=== PATIENT | female | born 1985 | race Two or more races ===

== ENCOUNTER 2021-08-07 08:28 | Outpatient (CLI) | payer OTHER ==
[2021-08-07 10:46] VITALS: BP 128/86
--- NOTE | 2021-08-07 10:46 | SLEEP CARE CONSULTATION ---
Information from patient questionnaire entered by Lanny Day MA. I have reviewed and concur with the information entered by Lanny Day MA. This document represents the service I personally performed and the decisions made by , Altagracia Ferrer ARNP. History of Present Illness Service Date and Time: 08/07/2021 0828 Reason for Visit: New patient, Previously diagnosed sleep apnea, sleep apnea on CPAP therapy, Other (update supplies) Date of Onset: 5 years or more Usual bedtime: 1100 am Time it takes to fall asleep: 3 hours Snores at night: Yes Observed to quit breathing while asleep: No Sleeps alone due to snoring: Yes Number of times waking at night: 2 -3 times Reasons for waking at night: reports: Snoring, Bathroom Toss, Turn, or Twitch while sleeping: Yes Recalls having dreams: Yes Usually gets out of bed at: 0600 0700 Feels refreshed in the morning: No Morning headache: No Sleepy or fatigued during the day: No Ever fallen asleep while driving: No Takes day naps: Yes Dreams during day naps: Yes Prior sleep studies: Yes Year and Where: 01-14-2018 in [place] Type of Sleep Study: Polysomnography Additional HPI information: MARIA ISABEL DELGADO was previously diagnosed to have unknown, AHI unknown, sleep apnea- hypopnea syndrome and comes in today to establish care for CPAP therapy. - Parasomnia Symptoms Ever been unable to move upon waking from sleep: Yes Walks in sleep: No Talks in sleep: Yes Ever acted out dreams in sleep: Yes Ever felt weak in the knees when startled or emotional: No Bothered by creepy, crawly, restless sensations in legs: No Problems with memory or concentration: Yes CPAP Compliance Data - Data Reviewed with Patient Average duration of nightly device use: 5 hours 34 minutes Compliance rate %: 10 Current pressure setting (cmH2O): 8-15 Average residual AHI: 0.7 Central apnea: 0.0 Obstructive apnea: 0.6 Compliance data discussion: Patient has been on CPAP since 2018. She has not been able to get supplies for about 2 years she has not been able to get supplies. Her DME, [employer], stopped sending supplies and she has not been able to get ahold of them. She is using a nasal , over the nose, type mask. She is in need of supplies. Her mask is not working well because she needs a new mask. Subjective Patient concerns: denies: aerophagia, mask discomfort, air blowing in eyes, mask leak noise, condensation in mask/hose, nasal congestion, dry mouth, nose, throat, epistaxis, other Observed to snore while using device: No Current pressure setting perceived as: comfortable On therapy, patient: reports: sleeping better, awakening more refreshed, being more awake and alert during the day, more rested overall. denies: drowsiness while driving Initial [place] Sleepiness Scale score: 11 (2020) Past Medical History Past Medical History: reports: Other (insomnia; tonsillectomy; nose surgery to open up once side of nose) Social History The patient's occupation is a NONE. Patient is and lives in [place]. Have you smoked in the past 12 months: Yes Years of smokin Alcohol use: Yes Alcohol amount and frequency: 3 x weekends Caffeine use: Yes Caffeine amount and frequency: 2 sodas a week Family History Family history of sleep disordered breathing: No Family Hx Sleep Apnea: Father: Snoring (2 sisters), Sibling: Snoring Allergies and Home Medications Drug allergies reviewed: Yes (NKDA) Home medication list reviewed: Yes Allergy and home medication list: sleeping aide (she does not remember name) vitamins Review of Systems Weight gain over past 5 years: 50 Cardiovascular: denies: high blood pressure Gastrointestinal: denies: heartburn Neurological: denies: headaches Psychiatric: denies: anxiety, depression Ear/Nose/Throat: reports: tonsillectomy. denies: wisdom teeth removed Endocrine: denies: thyroid disease Immunologic: denies: allergies to food or environment Physical Exam Vital signs obtained and entered by: Greg DAY CMA AAMA Blood Pressure: 128/86 (LEFT) Cuff size: wrist Heart Rate: 91 O2 Saturation: 93 (CLOTH MASK) Height: 5 ft 1 in Weight: 171 lb Body Mass Index: 32.3 BMI Classification: Obese Heart: regular rate and rhythm Lungs: clear bilaterally Impression and Plan 1. Obstructive Sleep Apnea-Hypopnea Syndrome, unknown, with poor treatment compliance and excellent apnea control. On CPAP therapy, the patient has better sleep quality and is more rested overall. Patient has been on CPAP for about 3 years. Patient states about 2 years ago she stopped getting supplies from her DME company. She try to contact them but was never able to get a hold of anyone and she thinks that they may no longer be in business. She uses nasal over the nose style of mask and when she has will slip off of her face within 20 minutes of her putting on her mask. She needs supplies. We need a copy of her sleep study. She has requested this and states it will take about 3 weeks for her to get back copy and then she will bring it into the office. Once I have a copy of her sleep study I will write for a transfer of DME for her supplies and to update her supplies. I will then follow-up with her in about a month after this to recheck her compliance. Patient's apnea severity and rationale for treatment to reduce apnea, improve sleep quality and reduce cardiovascular and cerebrovascular events was reviewed. Patient was encouraged to lose weight for their overall health and to reduce apneas. * Continue auto CPAP pressure at 8-15 cmH2O * Transfer DME * Update supplies * Notify me if snoring with mask or feeling that the pressure is too much or too little * Attempt to lose weight * Call this office if any problems using CPAP * Return for follow up in 1-2 months, or sooner if concerns arise Counseling Topics: Spare mask, Weight loss health impact Visit Type: In Office Time Spent with Patient (minutes): 32 Provider Statement: I spent 100% of the Face to Face Visit with the patient with greater than 50% spent counseling the patient and coordination of care.
== END 2021-08-07 08:29 | disposition home or self-care (01) ==
LOC: SC 08:28
PROVIDERS: ATTEND Nurse Practitioner Family
DX: G47.33 Obstructive sleep apnea (adult) (pediatric) (principal); E66.9 Obesity, unspecified; Z68.32 Body mass index [BMI] 32.0-32.9, adult
CPT/HCPCS: 99203; 99212

== ENCOUNTER 2023-07-01 08:00 | Outpatient (CLI) | payer OTHER | END 2023-07-01 23:59 | disposition home or self-care (01) | LOC: LAB.N 08:00 | PROVIDERS: ATTEND Physician Assistant Medical | DX: R30.0 Dysuria (principal) | CPT/HCPCS: 87086 ==

== ENCOUNTER 2023-07-02 23:13 | Emergency (ER) | payer OTHER ==
[2023-07-03 01:22] LABS: BASOPHILS % (AUTO) 0.4 %; EOSINOPHILS # (AUTO) 0.3 10^3/uL (0.0-0.7); EOSINOPHILS % (AUTO) 3.3 %; HCT - HEMATOCRIT 45.8 % (37.0-47.0); HGB - HEMOGLOBIN 15.2 g/dL (12.0-16.0); LYMPHOCYTES # (AUTO) 1.9 10^3/uL (1.5-3.5); LYMPHOCYTES % (AUTO) 24.1 %; MEAN CORPUSCULAR HEMOGLOBIN 32.2 pg (27.0-31.0); MEAN CORPUSCULAR HGB CONC 33.2 g/dL (32.0-36.0); MEAN PLATELET VOLUME 9.4 fL (7.9-10.8); MONOCYTES # (AUTO) 0.5 10^3/uL (0.0-1.0); MONOCYTES % (AUTO) 6.5 %; NEUTROPHILS # (AUTO) 5.1 10^3/uL (1.5-6.6); NEUTROPHILS % (AUTO) 65.1 %; PLT - PLATELET COUNT 426 10^3/uL (130-450); RED BLOOD COUNT 4.72 10^6/uL (4.20-5.40); RED CELL DISTRIBUTION WIDTH 12.5 % (12.0-15.0); WHITE BLOOD COUNT 7.8 x10^3/uL (4.8-10.8)
[2023-07-03 01:42] LABS: BILIRUBIN,URINE NEGATIVE (NEGATIVE); GLUCOSE, URINE (UA) NEGATIVE (NEGATIVE); KETONES,URINE (UA) NEGATIVE (NEGATIVE); LEUKOCYTE ESTERASE, URINE NEGATIVE (NEGATIVE); NITRITE,URINE NEGATIVE (NEGATIVE); OCCULT BLOOD,URINE TRACE-INTA (NEGATIVE); PROTEIN,URINE NEGATIVE (NEGATIVE); UROBILINOGEN,URINE 1 (NORMAL) E.U./dL (NORMAL)
[2023-07-03 01:43] LABS: CLARITY,URINE CLEAR (CLEAR); HCG UR QUAL NEGATIVE
[2023-07-03 02:11] LABS: ALBUMIN 4.6 g/dL (3.2-5.5)
[2023-07-03 02:39] LABS: ALBUMIN/GLOBULIN RATIO 1.8 (1.0-2.2); BILIRUBIN,TOTAL 0.3 mg/dL (0.2-1.0); CALCIUM 9.5 mg/dL (8.5-10.3); CREATININE 0.8 mg/dL (0.6-1.3); POTASSIUM 3.6 mmol/L (3.5-4.5); TOTAL PROTEIN 7.1 g/dL (6.4-8.9)
--- NOTE | 2023-07-03 02:53 | ED Physician Documentation ---
PD HPI SKIN - Stated complaint Stated Complaint: RASH - Chief complaint Chief Complaint: Wound - History obtained from History obtained from: Patient - Additional information Additional information: 38yF on day 2 of macrobid antibiotics for uti p/w full body pruritic rash X 1 day. denies n/v, headache, soa, cp. NKDA. no new bath products, or other potential allergen exposures PD PAST MEDICAL HISTORY - Past Medical History Past Medical History: Yes Cardiovascular: None Respiratory: None Neuro: None Endocrine/Autoimmune: None GI: None FLOOR INSTALLATION MECHANIC: None : None HEENT: None, Other Psych: None Musculoskeletal: None Derm: None - Past Surgical History Past Surgical History: Yes /FLOOR INSTALLATION MECHANIC: Breast implants HEENT: Rhinoplasty - Present Medications Home Medications: Ambulatory Orders Medication Instructions Recorded Confirmed cephALEXin [Keflex] 500 mg PO Q6H #28 tab 07/03/23 - Allergies Allergies/Adverse Reactions: Allergies Allergy/AdvReac Type Severity Reaction Status Date / Time No Known Drug Allergies Allergy Verified 07/02/23 23:25 - Social History Does the pt smoke?: Yes Smoking Status: Current every day smoker Does the pt drink ETOH?: Yes Does the pt have substance abuse?: No - Immunizations Immunizations are current?: Yes - POLST Patient has POLST: No PD ED PE NORMAL - Vitals Vital signs reviewed: Yes - General General: Alert and oriented X 3, No acute distress, Well developed/nourished - HEENT HEENT: Atraumatic, PERRL, EOMI - Neck Neck: Supple, no meningeal sign - Abdomen Abdomen: Non tender, Non distended - Female Female : Pt declined - Derm Derm: Normal color, Warm and dry, Other (fine erythematous raised rash to entire body) - Extremities Extremities: No deformity Results - Vitals Vitals: Vital Signs - 24 hr 07/02/23 07/03/23 23:18 00:06 Temperature 36.7 C Heart Rate 88 Respiratory 18 18 Rate Blood Pressure 139/81 H O2 Saturation 97 Oxygen O2 Source Room air - Labs Labs: Laboratory Tests 07/03/23 07/03/23 07/03/23 01:17 01:17 01:25 WBC 7.8 RBC 4.72 Hgb 15.2 Hct 45.8 MCV 97.0 MCH 32.2 H MCHC 33.2 RDW 12.5 Plt Count 426 MPV 9.4 Neut # (Auto) 5.1 Lymph # (Auto) 1.9 [place] # (Auto) 0.5 Eos # (Auto) 0.3 Baso # (Auto) 0.0 Absolute Nucleated RBC 0.00 Nucleated RBC % 0.0 Sodium 137 Potassium 3.6 Chloride 103 Carbon Dioxide 22 Anion Gap 12.0 BUN 11 Creatinine 0.8 Estimated GFR (MDRD) 79 L Glucose 102 Calcium 9.5 Total Bilirubin 0.3 AST 24 ALT 26 Alkaline Phosphatase 56 Total Protein 7.1 Albumin 4.6 Globulin 2.5 Albumin/Globulin Ratio 1.8 Lipase 28 Urine Color YELLOW Urine Clarity CLEAR Urine pH 6.0 Ur Specific [place] 1.025 Urine Protein NEGATIVE Urine Glucose (UA) NEGATIVE Urine Ketones NEGATIVE Urine Occult Blood TRACE-INTA Urine Nitrite NEGATIVE Urine Bilirubin NEGATIVE Urine Urobilinogen 1 (NORMAL) Ur Leukocyte Esterase NEGATIVE Ur Microscopic Review NOT INDICATED Urine Culture Comments NOT INDICATED Urine HCG, Qual NEGATIVE PD Medical Decision Making - ED course ED course: 38yF presents to the ED with uti diagnosed a couple days ago, s/p 2 days of macrobid, with full body pruritic rash erupting during this time. suspect allergic reaction to macrobid. patient requested labwork to check kidney function given she had u/a previously but no bloodwork. u/a at this time appears sterile aside from some blood. nevertheless since she is only on day 2 of macrobid and appears to be having a reaction I will switch to keflex. also offered STI screening and patient accepted. declined nurse gynecology exam, opting to self swab. she will f/u the results on her patient health portal and discuss with pcp. return precautions given. Departure - Departure Disposition: 01 Home, Self Care Clinical Impression: Rash Condition: Stable Instructions: ED Drug React Allergic Prescriptions: cephALEXin [Keflex] 500 mg PO Q6H #28 tab Comments: You were seen in the emergency department for pain with urination and for full body rash. You likely had an allergic reaction to macrobid (nitrofurantoin). Alternative antibiotics were sent electronically to [facility] in [place]. Your final test results will be available on the patient health portal in 2-3 days. Please follow-up with your primary care provider and return to the emergency department if you have any new or worsening symptoms or other concerns.
[2023-07-03 03:09] VITALS: BP 168/102; O2SAT 98
[2023-07-03 06:04] LABS: CHLAMYDIA TRACHOMATIS DNA NEGATIVE (NEGATIVE); NEISSERIA GONORRHOEAE DNA NEGATIVE (NEGATIVE); TRICHOMONAS VAGINALIS DNA NEGATIVE (NEGATIVE)
== END 2023-07-03 03:07 | disposition home or self-care (01) ==
LOC: ED 23:13
DX: R21 Rash and other nonspecific skin eruption (principal); F17.200 Nicotine dependence, unspecified, uncomplicated; Z11.3 Encounter for screening for infections with a predominantly sexual mode of transmission
CPT/HCPCS: 36415; 80053; 81001; 81003; 81025; 83690; 85025; 87086; 87491; 87591; 87661; 99283

== ENCOUNTER 2023-07-14 14:23 | Outpatient (CLI) | payer OTHER ==
--- NOTE | 2023-07-14 16:25 | CT Report ---
PROCEDURE: ABDOMEN/PELVIS WO INDICATIONS: DYSURIA TECHNIQUE: A CT scan of the abdomen and pelvis was performed without the use of intravenous contrast. Images we re recorded and evaluated at appropriate window settings. Reformats: coronal and sagittal. For radiat ion dose reduction, the following was used: automated exposure control, adjustment of mA and/or kV ac cording to patient size. COMPARISON: None. FINDINGS: Image quality: Excellent. Lung bases and heart: Visualized portion of bilateral breast implants are intact. Bilateral lung base s are clear. Heart size is normal, no pericardial effusion. Liver: No solid mass. Moderate hepatic steatosis is seen, no discrete hepatic lesion. Gallbladder and biliary tree: Gallbladder is within normal limits. Spleen: No splenomegaly. Pancreas: No pancreatic ductal dilation. Adrenals: No adrenal nodule. Kidneys and ureters: Punctate 1 to 2 mm nonobstructing bilateral renal calculi are seen. No hydroneph rosis. No renal cystic lesion which requires follow up. No solid mass. Bowel and peritoneum: No bowel distension. No pathologic free fluid. Appendix is visualized and is wi thin normal limits. No peritoneal free air. Lymph nodes: No central or retroperitoneal adenopathy. Vessels: No infrarenal aortic aneurysm. PELVIS Reproductive organs: Intrauterine device is noted within the central endometrial location. Suggestion of small left renal cyst measures 2.4 cm in size. Bladder: No wall thickness, accounting for underdistention. Pelvic lymph nodes: No pelvic adenopathy by size criteria. Bones: No aggressive osseous abnormality. Other: No significant ventral or inguinal hernia. IMPRESSION: 1. No hydronephrosis or obstructing renal stone. Punctate tiny 1 to 2 mm bilateral nonobstructing naya al calculi. No hydroureter. Normal-appearing urinary bladder. 2. Moderate hepatic steatosis, no discrete hepatic lesion. 3. No bowel obstruction or abnormal bowel wall thickening. Normal appendix. No free fluid or free air . 4. Intrauterine device in situ. Small left ovarian cyst as above. Reviewed by: Juan Carlos Sotelo MD on 07/14/2023 4:24 PM PST Approved by: Juan Carlos Sotelo MD on 07/14/2023 4:24 PM PST Station ID: [id number]
== END 2023-07-14 14:24 | disposition home or self-care (01) ==
LOC: DI 14:23
PROVIDERS: ATTEND Physician Assistant Medical
DX: R30.0 Dysuria (principal); N20.0 Calculus of kidney; K76.0 Fatty (change of) liver, not elsewhere classified; Z97.5 Presence of (intrauterine) contraceptive device; N83.202 Unspecified ovarian cyst, left side